=== PATIENT | female | born 1985 | race Two or more races ===

== ENCOUNTER 2020-02-23 18:49 | Emergency (ER) | payer BC ==
--- NOTE | 2020-02-23 19:31 | ER Document Report ---
ED Medical Screen (RME) - General Chief Complaint: Shortness Of Breath Stated Complaint: SHORTNESS OF BREATH Time Seen by Provider: 02/23/20 19:19 Notes: Patient is a 34-year-old female with a history of hypothyroidism who presents to the emergency department with a chief complaint of shortness of breath and palpitations. Patient states that she was started on Levaquin for urinary tract infection on 15 February. She states that ever since she started taking the medication she felt palpitations and shortness of breath. Patient denies any smoking. She currently has an IUD in. Patient speaks Kazakh. I offered [employer]ti translation and she preferred that her sister translate over the phone. Exam: Alert and oriented. I have greeted and performed a rapid initial assessment of this patient. A comprehensive ED assessment and evaluation of the patient, analysis of test results and completion of medical decision making process will be conducted by an additional ED providers. Physical Exam - Vital signs Vitals: Temp Pulse Resp BP Pulse Ox 98.2 F 110 H 17 116/79 100 02/23/20 18:55 02/23/20 18:55 02/23/20 18:55 02/23/20 18:55 02/23/20 18:55 Course - Vital Signs Vital signs: Temp Pulse Resp BP Pulse Ox 98.2 F 110 H 17 116/79 100 02/23/20 18:55 02/23/20 18:55 02/23/20 18:55 02/23/20 18:55 02/23/20 18:55
[2020-02-23 21:36] LABS: ABSOLUTE EOSINOPHILS # (AUTO) 0.1 10^3/uL (0.0-0.6); ABSOLUTE MONOCYTES (AUTO) 0.6 10^3/uL (0.1-1.4); ABSOLUTE NEUT (AUTO) 5.1 10^3/uL (1.7-8.2); BASOPHILS % (AUTO) 0.4 % (0-2); HEMATOCRIT 39.2 % (36.0-47.0); HEMOGLOBIN 12.8 g/dL (12.0-15.5); LYMPHOCYTES % (AUTO) 33.4 % (13-45); MEAN CORPUSCULAR HGB CONC 32.7 g/dL (32.0-36.0); MEAN CORPUSCULAR VOLUME 76 fl (80-97); MONOCYTES % (AUTO) 7.3 % (3-13); PLATELET COUNT 347 10^3/uL (150-450); RED BLOOD COUNT 5.13 10^6/uL (3.72-5.28); RED CELL DISTRIBUTION WIDTH 15.8 % (11.5-14.0); SEGMENTED NEUTROPHILS % (AUTO) 57.9 % (42-78); TOTAL CELLS COUNTED % (AUTO) 100 %; WHITE BLOOD COUNT 8.9 10^3/uL (4.0-10.5)
--- NOTE | 2020-02-23 21:52 | RADIOLOGY REPORT (SQ) ---
XR CHEST 1 VIEW HISTORY: Shortness of breath. COMPARISON: None. FINDINGS: The heart size is mildly enlarged. There is no pulmonary vascular congestion. No consolidation, pleural effusion, or pneumothorax is seen. No acute bony findings are seen. IMPRESSION: No evidence of acute cardiopulmonary disease.
[2020-02-23 21:53] LABS: ALBUMIN 4.9 g/dL (3.5-5.0); ALKALINE PHOSPHATASE 67 U/L (38-126); ANION GAP 10 (5-19); ASPARTATE AMINO TRANSFERASE 22 U/L (14-36); BILIRUBIN,DIRECT 0.4 mg/dL (0.0-0.4); BILIRUBIN,TOTAL 0.4 mg/dL (0.2-1.3); BLOOD UREA NITROGEN 14 mg/dL (7-20); CALCIUM 9.9 mg/dL (8.4-10.2); CARBON DIOXIDE 27 mmol/L (22-30); CHLORIDE 104 mmol/L (98-107); GLUCOSE 95 mg/dL (75-110); TOTAL PROTEIN 8.9 g/dL (6.3-8.2)
[2020-02-23 22:08] LABS: FREE T3 2.55 pg/mL (2.77-5.27); FREE T4 (FREE THYROXINE) 1.45 ng/dL (0.78-2.19)
--- NOTE | 2020-02-23 22:11 | ER Document Report ---
ED Cardiac - General Chief Complaint: Palpitations Stated Complaint: SHORTNESS OF BREATH Time Seen by Provider: 02/23/20 19:19 Notes: CHIEF COMPLAINT: Palpitations while taking Levaquin HPI: History is obtained from the patient through her on the phone who is interpreting for the patient per the patient's request. 34-year-old female who started taking Levaquin 4 days ago for UTI symptoms which have resolved and finished the Levaquin today presenting with palpitations where she feels like her heart beats irregularly and she becomes short of breath. States that this is been happening intermittently the whole time she has been on the Levaquin. Has no chest pain with this. No abdominal pain denies nausea or vomiting. Did not have any symptoms like this previous to taking Levaquin. ROS: See HPI - all other systems were reviewed and are otherwise negative Constitutional: no fever Eyes: no drainage, no blurred vision ENT: no runny nose, no sore throat Cardiovascular: no chest pain, positive palpitations Resp: + SOB, no cough GI: no vomiting, no diarrhea, no abdominal pain : no dysuria Integumentary: no rash Allergy: no hives Musculoskeletal: no extremity pain or swelling Neurological: no numbness/tingling, no weakness MEDICATIONS: I agree with the patient medications as charted by the RN. ALLERGIES: I agree with the allergies as charted by the RN. PAST MEDICAL HISTORY/PAST SURGICAL HISTORY: Reviewed and agree as charted by RN. SOCIAL HISTORY: Reviewed and agree as charted by RN. FAMILY HISTORY: No significant familial comorbid conditions directly related to patient complaint EXAM: Reviewed vital signs as charted by RN. CONSTITUTIONAL: Alert and oriented and responds appropriately to questions. Well-appearing; well-nourished HEAD: Normocephalic; atraumatic EYES: PERRL; Conjunctivae clear, sclerae non-icteric ENT: normal nose; no rhinorrhea; moist mucous membranes; pharynx without lesions noted, no uvula edema or deviation, no tonsillar hypertrophy, phonation normal NECK: Supple without meningismus; non-tender; no cervical lymphadenopathy, no masses CARD: RRR; no murmurs, no clicks, no rubs, no gallops; symmetric distal pulses RESP: Normal chest excursion without splinting or tachypnea; breath sounds clear and equal bilaterally; no wheezes, no rhonchi, no rales, pulse oximetry 98% on room air not hypoxic ABD/GI: Normal bowel sounds; non-distended; soft, non-tender, no rebound, no gu arding; no palpable organomegaly or masses. BACK: The back appears normal and is non-tender to palpation, there is no CVA tenderness EXT: Normal ROM in all joints; non-tender to palpation; no cyanosis, no effusions, no edema SKIN: Normal color for age and race; warm; dry; good turgor; no acute lesions noted NEURO: Moves all extremities equally; Motor and sensory function intact PSYCH: The patient's mood and manner are appropriate. Grooming and personal hygiene are appropriate. MDM: 34-year-old Malay female who began having palpitations and sensation of irregular heartbeat while on Levaquin. EKG normal sinus rhythm with a ventricular rate of 72 HI 168 QTC 421 with a QT of 384. Interpreted by emergency department physician, no other ectopy. No visible pauses. Symptoms only began while she was on Levaquin. She is now finished this medication. Her initial screening through the triage process did not show acute abnormalities in chest x-ray or lab work. TSH is pending currently, if within normal limits anticipate discharge home to follow-up with cardiology although I suspect this is likely a medication side effect. Patient d-dimer was negative - Related Data Allergies/Adverse Reactions: No Known Allergies Allergy (Unverified 02/23/20 22:07) Home Medications: Levothyroxine. Levaquin Past Medical History - Social History Smoking Status: Never Smoker Chew tobacco use (# tins/day): No Frequency of alcohol use: None Drug Abuse: None Family History: Reviewed & Not Pertinent Physical Exam - Vital signs Vitals: Temp Pulse Resp BP Pulse Ox 98.2 F 110 H 17 116/79 100 02/23/20 18:55 02/23/20 18:55 02/23/20 18:55 02/23/20 18:55 02/23/20 18:55 Course - Re-evaluation Re-evalutation: 02/23/20 22:29 TSH is normal. Will discharge home to follow-up with cardiology - Vital Signs Vital signs: Temp Pulse Resp BP Pulse Ox 98.2 F 110 H 17 116/79 100 02/23/20 18:55 02/23/20 18:55 02/23/20 18:55 02/23/20 18:55 02/23/20 18:55 - Laboratory Result Diagrams: 02/23/20 21:21 02/23/20 21:21 Laboratory results interpreted by me: 02/23/20 02/23/20 02/23/20 21:21 21:21 21:21 MCV 76 L MCH 25.0 L RDW 15.8 H Total Protein 8.9 H Free T3 pg/mL 2.55 L Discharge - Discharge Clinical Impression: Palpitations Condition: Stable Disposition: HOME, SELF-CARE Additional Instructions: Your lab work and imaging studies tonight did not show acute abnormalities. If you continue to have symptoms beyond the next 48 hours follow-up with cardiology for Holter monitoring or further evaluation Referrals: STEPHEN LEON MD [ACTIVE PROVISIONAL STAFF] - Follow up as needed
[2020-02-23 22:22] LABS: THYROID STIMULATING HORMONE 1.52 uIU/mL (0.47-4.68)
[2020-02-23 22:27] LABS: APPEARANCE,URINE CLEAR; BILIRUBIN,URINE NEGATIVE (NEGATIVE); COLOR,URINE YELLOW; GLUCOSE, URINE NEGATIVE (NEGATIVE); KETONES,URINE NEGATIVE (NEGATIVE); LEUKOCYTE ESTERASE,URINE NEGATIVE (NEGATIVE); NITRITE,URINE NEGATIVE (NEGATIVE); PROTEIN,URINE NEGATIVE (NEGATIVE); URINE SPECIFIC GRAVITY 1.018; UROBILINOGEN,URINE NEGATIVE mg/dL (<2.0)
[2020-02-23 23:16] VITALS: BP 118/68
--- NOTE | 2020-02-26 02:17 | EKG REPORT ---
SEVERITY:- NORMAL ECG - SINUS RHYTHM : Confirmed by: Salvador Aguirre MD 26-Feb-2020 02:16:41
== END 2020-02-23 23:20 | disposition home or self-care (01) ==
LOC: ER 18:49
DX: R00.2 Palpitations (principal); R06.02 Shortness of breath; Z79.899 Other long term (current) drug therapy; Z97.5 Presence of (intrauterine) contraceptive device
CPT/HCPCS: 36415; 71045; 80053; 81001; 81025; 84439; 84443; 84481; 85025; 85379; 93005; 93010; 99283